=== PATIENT | male | born 1950 | race Caucasian/White ===

== ENCOUNTER 2016-08-05 10:05 | Day surgery (SDC) | payer OTHER ==
[2016-08-05] VITALS (16 sets, daily range): BP systolic 85–146; BP diastolic 59–85; PULSE 70–92; RESP 11–21; Ht 177.8 cm; Wt 71.6 kg
[~2016-08-05] VITALS: Ht 177.8 cm; Wt 71.6 kg
[~2016-08-05 10:05] MED LIST: BENAZEPRIL PO; CEFAZOLIN 1 GM INJ ONE; DIAZEPAM PO; HYDR-906 PO; NORCO; WELLBUTRIN PO
[2016-08-05] MEDS ORDERED: SOD CHLORIDE 0.9% 1,000 ML IV SCH (10:30)
[2016-08-05] MEDS ORDERED: CEFAZOLIN 2 GM/50 ML (PMX) 50 ML IVPB ONE (10:30)
[2016-08-05] MEDS ORDERED: LATA2.5D2 BOTH EYES (10:36)
[2016-08-05] MEDS ORDERED: BENA10TA48 PO (10:36)
[2016-08-05] MEDS ORDERED: FENTAnyl 50 MCG/ML VIAL ONE (11:31)
[2016-08-05] MEDS ORDERED: PROPOFOL 20 ML ONE (11:31)
[2016-08-05] MEDS ORDERED: MIDAZOLAM 1 MG/ML 2 ML INJ ONE (11:31)
[2016-08-05] MEDS ORDERED: BUPIVACAINE 0.25% (MPF) 30 ML INJ ONE (12:03)
[2016-08-05] MEDS ORDERED: POLYMYXIN/BACITRACIN 1L IRRIG ONE (12:31)
[2016-08-05] MEDS ORDERED: CEFAZOLIN 1 GM INJ ONE (12:50)
[2016-08-05] MEDS ORDERED: BUPIVACAINE 0.25% (MPF) 30 ML INJ INJ ONE (12:52)
[2016-08-05] MEDS ORDERED: POLYMYXIN/BACITRACIN 1L IRRIG IRR ONE (12:52)
[2016-08-05] MEDS ORDERED: KETOROLAC 30 MG INJ ONE (13:17)
[2016-08-05] MEDS ORDERED: ONDANSETRON 4 MG INJ ONE (13:17)
[2016-08-05] MEDS ORDERED: DEXAMETHASONE 4 MG/ML 1 ML INJ ONE (13:17)
[2016-08-05] MEDS ORDERED: METOCLOPRAMIDE 10 MG INJ ONE (13:17)
[2016-08-05] MEDS ORDERED: MEPERIDINE 100 MG INJ ONE (13:22)
[2016-08-05] MEDS ORDERED: SUCCINYLCHOLINE CHLORIDE 100 MG/5 ML SYG IV ONE (13:25)
[2016-08-05] MEDS ORDERED: MEPERIDINE 25 MG INJ IV PRN (13:30)
[2016-08-05] MEDS ORDERED: HYDROmorphONE (0.2 MG/ML) 10ML SYG IV PRN ×3 (13:30)
[2016-08-05] MEDS ORDERED: HYDROCODONE/APAP (5/325) TAB PO ONE (13:30)
[2016-08-05] MEDS ORDERED: DIPHENHYDRAMINE 50 MG INJ IV PRN (13:30)
[2016-08-05] MEDS ORDERED: morphine (1 MG/ML) 10ML SYRINGE IV PRN ×3 (13:30)
[2016-08-05] MEDS ORDERED: ONDANSETRON 4 MG INJ IV PRN (13:30)
--- NOTE | 2016-08-05 14:12 | OPR ---
DATE OF OPERATION: 08/05/2016 INDICATION: This is a 65-year-old male with a right inguinal hernia. He requests surgical repair. Risks, alternatives, benefits, and personnel were discussed with the patient. The patient expresse d his understanding and consents to the operation. POSTOPERATIVE DIAGNOSIS: Right inguinal hernia. OPERATION: Open right inguinal hernia repair with large Ultrapro hernia system mesh. SURGEON: Maryan Vallejo MD SPECIMENS: None. COMPLICATIONS: None. ANESTHESIA: General. DESCRIPTION OF PROCEDURE: The patient was taken to the OR and prepped and draped in the usual steri le fashion. Surgical time out was performed. IV antibiotics were given. Right inguinal oblique in cision was made with a 10 blade. Dissection cautery was carried down to the external oblique fascia . This is opened with a 15 blade. This incision was extended medial inferiorly and lateral superio rly with Metzenbaum scissors. Cord structures are encircled with the Jennifer drain. This portion o f the Ultrapro hernia system mesh was used to secure the floor of the inguinal hernia. This was sec ured in place with a running 0 Prolene from the pubic tubercle along the shelving edge of the inguin al ligament. Superiorly to the internal oblique. This was secured with interrupted 3-0 Vicryl. On lay mesh was secured in a similar fashion with a running 0 Prolene from the pubic tubercle along the shelving edge of the inguinal ligament. Straps were created and reapproximated with interrupted 0 plain to recreate the inguinal ring. The onlay mesh was secured to the internal oblique with interr upted 3-0 Vicryl. External oblique is closed with a running 3-0 Vicryl. Augusto's was closed with i nterrupted 3-0 Vicryl. Skin was closed using skin luis. Local anesthesia was injected. Dry ptaricia ssings were applied. Dictated By: MARYAN HENNING/CONCEPCION Conf#: [id number] DID#: [id number]
== END 2016-08-05 15:44 | disposition home or self-care (01) ==
LOC: SDS 10:05
PROVIDERS: ATTEND Surgery
DX: K40.90 Unilateral inguinal hernia, without obstruction or gangrene, not specified as recurrent (principal)
CPT/HCPCS: 49505; C1781; J0690; J1170; J1885; J2175; J2250; J2765; J3010; J0330; J1100; J2405

== ENCOUNTER 2017-08-19 07:27 | Day surgery (SDC) | END 2017-08-19 12:20 | disposition home or self-care (01) ==

== ENCOUNTER 2018-01-22 18:46 | Emergency (ER) | END 2018-01-22 21:41 | disposition home or self-care (01) ==